=== PATIENT | male | born 1940 | race Asian ===

== ENCOUNTER 2018-05-12 10:52 | Day surgery (SDC) | payer MEDICARE ==
[2018-05-08 11:36] VITALS: BMI 20.5
[~2018-05-12 10:52] MED LIST: LACTATED RINGERS 1,000 ML IV SCH
[2018-05-12 11:21] VITALS: TEMP 97.7
[2018-05-12] MEDS ORDERED: LIDOCAINE 1% 20 ML VIAL (10MG/ML) FOR IV START INTRADERMA ONE (11:29)
[2018-05-12] MEDS ORDERED: PROPOFOL 10 MG/ML 20 ML VIAL IV ONE (12:19)
--- NOTE | 2018-05-12 12:38 | P.PCN ---
Date of Procedure: 05/12/18 Procedure(s) Performed: Procedure: Total colonoscopy. Preoperative diagnosis: Screening for neoplasia, patient has history of polyps. Postoperative diagnosis: Exam within normal limits. Preparation: HalfLytely prep. Sedation: Was provided by anesthesia. Brief clinical history: The patient is a 77-year-old male who is scheduled for this evaluation for screening for neoplasia because of history of polyps. His last exam was in 2012. The patient has no abdominal complaints, bleeding or anemia. Procedure: With the patient on his left lateral decubitus position and after informed consent and adequate sedation, the perianal area was inspected and it did not show any fissures or fistulas. There were no masses felt on digital rectal examination. The Olympus CFQ 160L video colonoscope was then inserted in the rectum in the usual fashion and advanced to the cecum. The mucosa appeared healthy. No polyps or tumors were seen or any obvious diverticular disease or other pathology. I retroflexed the endoscope in the rectum before the endoscope was withdrawn. The patient tolerated the procedure well. Plan: The patient was reassured. He will follow up with you as planned and I recommended repeat exam in 5 years depending on his overall health at that time.
[2018-05-12 12:53] VITALS: BP 100/53; PULSE 63; RESP 18
== END 2018-05-12 13:16 | disposition home or self-care (01) ==
LOC: ORWHC2ENDO 10:52
DX: Z12.11 Encounter for screening for malignant neoplasm of colon (principal); Z86.010 Personal history of colon polyps
CPT/HCPCS: J2704; G0105